=== PATIENT | female | born 1950 | race American Indian/Alaskan Native ===

== ENCOUNTER 2018-03-20 10:39 | Outpatient (CLI) | payer OTHER | END 2018-03-20 10:49 | disposition home or self-care (01) | LOC: NUCLEAR 10:39 | DX: M46.28 Osteomyelitis of vertebra, sacral and sacrococcygeal region (principal); L89.159 Pressure ulcer of sacral region, unspecified stage | CPT/HCPCS: 78315; 78320; A9503 ==

== ENCOUNTER 2018-07-09 10:44 | Outpatient (CLI) | payer OTHER | END 2018-07-09 11:47 | disposition home or self-care (01) | LOC: RAD 501 10:44 | DX: M86.462 Chronic osteomyelitis with draining sinus, left tibia and fibula (principal); M86.461 Chronic osteomyelitis with draining sinus, right tibia and fibula; M25.561 Pain in right knee; M25.562 Pain in left knee ==

== ENCOUNTER 2020-06-19 11:29 | Outpatient (CLI) | payer OTHER | END 2020-06-19 15:00 | disposition home or self-care (01) | LOC: TOM 11:29 | DX: K59.09 Other constipation (principal); R10.31 Right lower quadrant pain; R10.32 Left lower quadrant pain; Q61.02 Congenital multiple renal cysts | CPT/HCPCS: 74177; Q9965 ==

== ENCOUNTER 2021-05-04 13:33 | Outpatient (CLI) | payer OTHER | END 2021-05-04 14:08 | disposition home or self-care (01) | LOC: MRI 13:33 | PROVIDERS: ATTEND Psychiatry & Neurology Neurology | DX: G93.89 Other specified disorders of brain (principal); G30.8 Other Alzheimer's disease | CPT/HCPCS: 70551 ==

== ENCOUNTER 2021-10-19 12:21 | Emergency (ER) | payer OTHER ==
[~2021-10-19] VITALS: Ht 160 cm; Wt 54.4 kg
[2021-10-19] MEDS ORDERED: GRALISE600 MG (13:02)
[2021-10-19] MEDS ORDERED: DITROPAN XL5 MG (13:02)
[2021-10-19] MEDS ORDERED: BACLOFEN20 MG PO (13:03)
[2021-10-19] MEDS ORDERED: ROSUVASTATIN CA20 MG PO (13:03)
[2021-10-19] MEDS ORDERED: ULTRAM50 MG PO (16:38)
== END 2021-10-19 16:44 | disposition home or self-care (01) ==
LOC: ER 12:21
DX: R51.9 Headache, unspecified (principal); Z88.2 Allergy status to sulfonamides

== ENCOUNTER 2023-04-27 23:12 | Inpatient (IN) | payer OTHER ==
[~2023-04-27] VITALS: Ht 160 cm; Wt 54.4 kg
[~2023-04-27 23:12] MED LIST: BACLOFEN20 MG PO; DITROPAN XL5 MG; GRALISE600 MG; ROSUVASTATIN CA20 MG PO; ULTRAM50 MG PO
[2023-04-28 01:34] LABS: HEMATOCRIT 44.1 % (36.0-45.00); HEMOGLOBIN 14.9 g/dL (12.0-15.00); MEAN CELL VOLUME 83.9 fL (80.00-100.00); MEAN CORPUSCULAR HEMOGLOBIN 28.3 pg (27.00-32.0); MEAN CORPUSCULAR HGB CONC 33.8 g/dl (32.0-36.0); PLATELET COUNT 201 K/uL (150-450); RED BLOOD COUNT 5.26 M/uL (4.00-6.00); RED CELL DISTRIBUTION WIDTH 15.3 % (11.5-14.5)
[2023-04-28 01:51] LABS: INR 1.02; PARTIAL THROMBOPLASTIN TIME 33.5 SECONDS (22.0-34.0); PROTHROMBIN TIME 10.7 SECONDS (9.0-11.5)
[2023-04-28 02:01] LABS: ALBUMIN 3.3 gm/dL (3.4-5.0); BILIRUBIN TOTAL 0.43 mg/dL (0.3-1.2); CALCIUM 8.9 mg/dL (8.5-10.1); CREATININE SERUM 0.46 mg/dL (0.55-1.02); GFR 134.29; POTASSIUM 3.6 mEq/L (3.5-5.1); TOTAL PROTEIN 7.3 gm/dL (6.4-8.2)
[2023-04-28 02:34] LABS: PH,URINE 5.5 (5.0-8.0); URINE APPEARANCE Clear; URINE BILIRRUBIN Negative (NEGATIVE); URINE BLOOD Small; URINE COLOR Yellow; URINE GLUCOSE Negative (NEGATIVE); URINE LEUKOCYTE Negative; URINE NITRATE Positive; URINE PROTEIN Trace (NEGATIVE); URINE UROBILINOGEN 0.2 E.U./dl
[2023-04-28 02:38] LABS: URINE EPITHELIAL CELLS 7.1 uL (0.0-38.8); URINE RBC 2.8 uL (0.0-20.8); URINE WBC 17.6 uL (0.0-23.2)
[2023-04-28 03:16] LABS: URINE BACTERIA > 9821.5 uL (0.0-1933); URINE CRYSTALS NEGATIVE /HPF; URINE YEAST NEGATIVE /hpf
[2023-04-28 20:24] LABS: CKMB 1.2 NG/ML (0.5-3.6)
[2023-04-30 21:52] LABS: HEMATOCRIT 41.8 % (36.0-45.00); HEMOGLOBIN 14.4 g/dL (12.0-15.00); MEAN CELL VOLUME 82.3 fL (80.00-100.00); MEAN CORPUSCULAR HEMOGLOBIN 28.3 pg (27.00-32.0); MEAN CORPUSCULAR HGB CONC 34.4 g/dl (32.0-36.0); PLATELET COUNT 167 K/uL (150-450); RED BLOOD COUNT 5.08 M/uL (4.00-6.00); RED CELL DISTRIBUTION WIDTH 15.5 % (11.5-14.5)
[2023-04-30 21:55] LABS: ERYTHROCYTE SEDIMENTATION RATE 18 mm/hr
[2023-04-30 22:16] LABS: INR 0.94; PARTIAL THROMBOPLASTIN TIME 35.8 SECONDS (22.0-34.0); PROTHROMBIN TIME 9.9 SECONDS (9.0-11.5)
[2023-04-30 22:21] LABS: CKMB 1.7 NG/ML (0.5-3.6)
[2023-04-30 22:29] LABS: ALBUMIN 2.8 gm/dL (3.4-5.0); ALKALINE PHOSPHATASE 90 U/L (50-136); ALT/SGPT 26 U/L (12-78); ANION GAP 11 (10.0-20.0); AST/SGOT 41 U/L (15-37); BILIRUBIN,CONJUGATED < 0.10 mg/dL (0.0-0.2); BLOOD UREA NITROGEN 16 mg/dL (7-18); BUN CREA RATIO 46 (7.0-25.0); CALCIUM 8.7 mg/dL (8.5-10.1); CARBON DIOXIDE 24 mEq/L (21-32); CHLORIDE 108 mmol/L (98-107); CHOL HDL RATIO 5.2 (0-5.0); CHOLESTEROL 234 mg/dL (0-200); CREATININE SERUM 0.35 mg/dL (0.55-1.02); GFR 184.09; GLOBULINA 3.3 G/DL (2.4-3.5); GLUCOSE FASTING 94 mg/dL (65-100); HDL 45 mg/dl (40-60); LDL 160 mg/dl (0-130); OSMOLALITY SERUM 278 MOSM/KG (275-295); SODIUM 139 mmol/L (136-145); TOTAL PROTEIN 6.1 gm/dL (6.4-8.2); TRIGLYCERIDES 143 mg/dL (0-150); VLDL 28 (0-39)
[2023-04-30 22:37] LABS: C-REACTIVE PROTEIN 1.78 MG/DL (0.00-0.29)
[2023-04-30 22:38] LABS: POTASSIUM 3.64 mEq/L (3.5-5.1)
[2023-05-01 02:43] LABS: URINE APPEARANCE Cloudy; URINE BILIRRUBIN Negative (NEGATIVE); URINE BLOOD Negative; URINE COLOR Yellow; URINE GLUCOSE Negative (NEGATIVE); URINE LEUKOCYTE Small; URINE NITRATE Negative; URINE PROTEIN 30 (NEGATIVE)
[2023-05-01 02:46] LABS: URINE BACTERIA 148.6 uL (0.0-1933); URINE EPITHELIAL CELLS 50.4 uL (0.0-38.8); URINE RBC 155.9 uL (0.0-20.8); URINE WBC 160.9 uL (0.0-23.2)
[2023-05-01 03:25] LABS: URINE CRYSTALS FEW /HPF; URINE EPITHELIAL CELLS 0-4 /HPF
[2023-05-03 14:47] LABS: HEMATOCRIT 40.9 % (36.0-45.00); HEMOGLOBIN 13.9 g/dL (12.0-15.00); MEAN CELL VOLUME 83.5 fL (80.00-100.00); MEAN CORPUSCULAR HEMOGLOBIN 28.4 pg (27.00-32.0); PLATELET COUNT 144 K/uL (150-450); RED BLOOD COUNT 4.89 M/uL (4.00-6.00); RED CELL DISTRIBUTION WIDTH 15.2 % (11.5-14.5)
[2023-05-03 15:26] LABS: ALBUMIN 2.4 gm/dL (3.4-5.0); BILIRUBIN TOTAL 0.42 mg/dL (0.3-1.2); CALCIUM 8.8 mg/dL (8.5-10.1); CREATININE SERUM 0.38 mg/dL (0.55-1.02); GFR 167.42; GLOBULINA 3.1 G/DL (2.4-3.5); POTASSIUM 3.18 mEq/L (3.5-5.1); TOTAL PROTEIN 5.5 gm/dL (6.4-8.2)
== END 2023-05-05 17:17 | disposition home or self-care (01) | DRG 689 ==
LOC: ER 23:12 → MEDI 04-28 19:19
PROVIDERS: General Practice; Internal Medicine; ADMIT Internal Medicine; ATTEND Internal Medicine
PROC: 4A12X4Z Monitoring of Cardiac Electrical Activity, External Approach (ICD-10-PCS; principal; 2023-04-28)
PROC: BW28ZZZ Computerized Tomography (CT Scan) of Head (ICD-10-PCS; 2023-04-28)
PROC: BW21ZZZ Computerized Tomography (CT Scan) of Abdomen and Pelvis (ICD-10-PCS; 2023-04-28)
PROC: B345ZZZ Ultrasonography of Bilateral Common Carotid Arteries (ICD-10-PCS; 2023-04-28)
PROC: 4A12X4Z Monitoring of Cardiac Electrical Activity, External Approach (ICD-10-PCS; 2023-04-28)
DX: N39.0 Urinary tract infection, site not specified (principal); G93.41 Metabolic encephalopathy; G82.20 Paraplegia, unspecified; R41.82 Altered mental status, unspecified; E78.5 Hyperlipidemia, unspecified; Z20.822 Contact with and (suspected) exposure to COVID-19; F10.20 Alcohol dependence, uncomplicated
CPT/HCPCS: 70544

== ENCOUNTER 2024-03-25 08:32 | Inpatient (IN) | payer OTHER ==
[~2024-03-25] VITALS: Ht 157.5 cm; Wt 54.4 kg
[2024-03-25] MEDS ORDERED: PREGABALIN75 MG PO (09:13)
[2024-03-25] MEDS ORDERED: 0.9 % SODIUM CHLORIDE 1,000 ML IV SCH ×2 (09:45→18:45)
[2024-03-25] MEDS ORDERED: PIPERACILLIN/TAZOBACTAM SODIUM 3.375 GM VIAL IV ONE (09:45)
[2024-03-25 11:06] LABS: CALCIUM 9.2 mg/dL (8.5-10.1); CREATININE SERUM 0.57 mg/dL (0.55-1.02); GFR 104.56; POTASSIUM 4.36 mEq/L (3.5-5.1)
[2024-03-25 11:16] LABS: HEMATOCRIT 36.4 % (36.0-45.00); MEAN CELL VOLUME 79.9 fL (80.00-100.00); MEAN CORPUSCULAR HEMOGLOBIN 26.4 pg (27.00-32.0); PLATELET COUNT 401 K/uL (150-450); RED BLOOD COUNT 4.55 M/uL (4.00-6.00); RED CELL DISTRIBUTION WIDTH 15.6 % (11.5-14.5)
[2024-03-25 13:26] LABS: PH,URINE 5.5 (5.0-8.0); URINE APPEARANCE Cloudy; URINE BILIRRUBIN Negative (NEGATIVE); URINE BLOOD Small; URINE COLOR Yellow; URINE GLUCOSE Negative (NEGATIVE); URINE KETONE Negative (NEGATIVE); URINE LEUKOCYTE Large; URINE NITRATE Positive; URINE PROTEIN Trace (NEGATIVE); URINE UROBILINOGEN 0.2 E.U./dl
[2024-03-25 13:27] LABS: URINE EPITHELIAL CELLS 14.3 uL (0.0-38.8); URINE RBC 12.6 uL (0.0-20.8); URINE WBC 1037.4 uL (0.0-23.2)
[2024-03-25 13:58] LABS: URINE BACTERIA > 9821.5 uL (0.0-1933)
[2024-03-25] MEDS ORDERED: VANCOMYCIN HCL 1,000 MG VIAL IV SCH (18:46)
[2024-03-25] MEDS ORDERED: CEFEPIME HCL 2,000 MG in 0.9 % SODIUM CHLORIDE 100 ML IV SCH (18:46)
[2024-03-25] MEDS ORDERED: ONDANSETRON HCL 4 MG in 0.9 % SODIUM CHLORIDE 50 ML IV PRN (19:00)
[2024-03-25] MEDS ORDERED: ACETAMINOPHEN 500 MG GEL..CAP PO PRN (19:00)
[2024-03-25 20:18] LABS: INR 1.09; PARTIAL THROMBOPLASTIN TIME 29.5 SECONDS (22.0-34.0); PROTHROMBIN TIME 11.8 SECONDS (9.0-11.5)
[2024-03-25 21:30] VITALS: BP 94/57; O2SAT 94
[2024-03-26 00:11] VITALS: BP 124/60; O2SAT 99
[2024-03-26 08:48] VITALS: BP 113/62; O2SAT 97
[2024-03-26] MEDS ORDERED: ENOXAPARIN SODIUM 40 MG/0.4 ML SYRINGE SUBCUTANEO SCH (09:00)
[2024-03-26] MEDS ORDERED: Pregabalin 50 MG CAPSULE PO SCH (09:00)
[2024-03-26] MEDS ORDERED: FAMOTIDINE/PF 20 MG in 0.9 % SODIUM CHLORIDE 8 ML IV PUSH SCH (09:00)
[2024-03-26] MEDS ORDERED: MUPIROCIN 22 GM OINT..GM TUBE NASAL SCH (17:00)
[2024-03-26] MEDS ORDERED: MUPIROCIN 15 GM OINT..GM TUBE NASAL SCH (17:00)
[2024-03-26 18:18] VITALS: BP 112/61; O2SAT 96
[2024-03-26] MEDS ORDERED: CEFEPIME HCL 2,000 MG in 0.9 % SODIUM CHLORIDE 100 ML IV SCH (21:00)
[2024-03-27 01:09] VITALS: BP 100/50; O2SAT 99
[2024-03-27 08:42] LABS: HEMATOCRIT 31.8 % (36.0-45.00); HEMOGLOBIN 10.5 g/dL (12.0-15.00); MEAN CELL VOLUME 79.2 fL (80.00-100.00); MEAN CORPUSCULAR HEMOGLOBIN 26.1 pg (27.00-32.0); MEAN CORPUSCULAR HGB CONC 32.9 g/dl (32.0-36.0); PLATELET COUNT 351 K/uL (150-450); RED BLOOD COUNT 4.01 M/uL (4.00-6.00); RED CELL DISTRIBUTION WIDTH 15.2 % (11.5-14.5)
[2024-03-27] MEDS ORDERED: CHLORHEXIDINE GLUCONATE 120 ML BOTTLE TOP SCH (09:00)
[2024-03-27 09:04] VITALS: BP 114/55; O2SAT 98
[2024-03-27 09:55] LABS: ALBUMIN 2.1 gm/dL (3.4-5.0); BILIRUBIN TOTAL 0.2 mg/dL (0.3-1.2); CALCIUM 8.6 mg/dL (8.5-10.1); GFR 258.67; GLOBULINA 3.6 G/DL (2.4-3.5); POTASSIUM 4.56 mEq/L (3.5-5.1); TOTAL PROTEIN 5.7 gm/dL (6.4-8.2)
[2024-03-27 10:02] LABS: CREATININE SERUM 0.26 mg/dL (0.55-1.02)
[2024-03-27] MEDS ORDERED: MEROPENEM 500 MG/VIAL VIAL IV SCH (14:00)
[2024-03-27 18:44] VITALS: BP 97/51
[2024-03-28 01:01] VITALS: BP 135/80
[2024-03-28 09:11] VITALS: BP 110/63; O2SAT 98
[2024-03-28 18:01] VITALS: BP 120/61; O2SAT 97
[2024-03-29 06:18] LABS: HEMATOCRIT 30.4 % (36.0-45.00); HEMOGLOBIN 10.3 g/dL (12.0-15.00); MEAN CELL VOLUME 78.9 fL (80.00-100.00); MEAN CORPUSCULAR HEMOGLOBIN 26.7 pg (27.00-32.0); MEAN CORPUSCULAR HGB CONC 33.8 g/dl (32.0-36.0); PLATELET COUNT 390 K/uL (150-450); RED BLOOD COUNT 3.86 M/uL (4.00-6.00); RED CELL DISTRIBUTION WIDTH 15.7 % (11.5-14.5)
[2024-03-29 06:59] LABS: ALBUMIN 1.9 gm/dL (3.4-5.0); BILIRUBIN TOTAL 0.21 mg/dL (0.3-1.2); CALCIUM 8.8 mg/dL (8.5-10.1); GFR 237.48; GLOBULINA 3.5 G/DL (2.4-3.5); POTASSIUM 5.56 mEq/L (3.5-5.1); TOTAL PROTEIN 5.4 gm/dL (6.4-8.2)
[2024-03-29 07:08] LABS: CREATININE SERUM 0.28 mg/dL (0.55-1.02)
[2024-03-29] MEDS ORDERED: SODIUM POLYSTYRENE SULFONATE 30G/8 TSP PO NR (08:45)
[2024-03-29 09:17] VITALS: BP 134/57; O2SAT 96
[2024-03-29 18:09] VITALS: BP 128/68; O2SAT 98
[2024-03-30 01:45] VITALS: BP 129/71; O2SAT 99
[2024-03-30 08:20] LABS: CALCIUM 8.9 mg/dL (8.5-10.1); CREATININE SERUM 0.34 mg/dL (0.55-1.02); GFR 189.8; POTASSIUM 5.22 mEq/L (3.5-5.1)
[2024-03-30 10:16] VITALS: BP 121/72; O2SAT 98
[2024-03-30 18:21] VITALS: BP 124/60
[2024-03-31 02:24] VITALS: BP 126/72
[2024-03-31 09:54] VITALS: BP 129/69; O2SAT 99
[2024-03-31 20:18] VITALS: BP 112/53
[2024-04-01 01:47] VITALS: BP 122/68
[2024-04-01 08:46] VITALS: BP 143/64; O2SAT 99
[2024-04-01 15:10] LABS: HEMATOCRIT 32.6 % (36.0-45.00); HEMOGLOBIN 10.8 g/dL (12.0-15.00); MEAN CELL VOLUME 77.9 fL (80.00-100.00); MEAN CORPUSCULAR HEMOGLOBIN 25.7 pg (27.00-32.0); PLATELET COUNT 499 K/uL (150-450); RED BLOOD COUNT 4.19 M/uL (4.00-6.00); RED CELL DISTRIBUTION WIDTH 15.8 % (11.5-14.5)
[2024-04-01 15:35] LABS: ALBUMIN 1.9 gm/dL (3.4-5.0); BILIRUBIN TOTAL 0.14 mg/dL (0.3-1.2); CALCIUM 8.3 mg/dL (8.5-10.1); CREATININE SERUM 0.34 mg/dL (0.55-1.02); GFR 189.8; GLOBULINA 3.6 G/DL (2.4-3.5); POTASSIUM 4.41 mEq/L (3.5-5.1); TOTAL PROTEIN 5.5 gm/dL (6.4-8.2)
[2024-04-01 19:25] VITALS: BP 130/70; O2SAT 97
[2024-04-02 01:03] VITALS: BP 117/55
[2024-04-02 10:01] VITALS: BP 127/74; O2SAT 96
[2024-04-02 18:54] VITALS: BP 120/70; O2SAT 97
[2024-04-03 02:12] VITALS: BP 122/71
[2024-04-03 06:08] LABS: HEMATOCRIT 33.4 % (36.0-45.00); HEMOGLOBIN 11.2 g/dL (12.0-15.00); MEAN CELL VOLUME 78.3 fL (80.00-100.00); MEAN CORPUSCULAR HEMOGLOBIN 26.3 pg (27.00-32.0); MEAN CORPUSCULAR HGB CONC 33.6 g/dl (32.0-36.0); PLATELET COUNT 493 K/uL (150-450); RED BLOOD COUNT 4.26 M/uL (4.00-6.00); RED CELL DISTRIBUTION WIDTH 15.4 % (11.5-14.5)
[2024-04-03 06:35] LABS: ERYTHROCYTE SEDIMENTATION RATE 68 mm/hr
[2024-04-03 06:40] LABS: CALCIUM 9.2 mg/dL (8.5-10.1); PHOSPHOROUS 3.2 mg/dL (2.5-4.9); POTASSIUM 5.3 mEq/L (3.5-5.1)
[2024-04-03 06:50] LABS: C-REACTIVE PROTEIN 4.34 MG/DL (0.00-0.29); CREATININE SERUM 0.26 mg/dL (0.55-1.02); GFR 258.67
[2024-04-03 08:55] VITALS: BP 123/60; O2SAT 98
== END 2024-04-03 21:56 | disposition home or self-care (01) | DRG 853 ==
LOC: ER 08:32 → MEDI 19:19 → MEDJ 19:19
PROVIDERS: Emergency Medicine; General Practice; Internal Medicine Infectious Disease; ADMIT Internal Medicine; ATTEND Internal Medicine
PROC: BW3GZZZ Magnetic Resonance Imaging (MRI) of Pelvic Region (ICD-10-PCS; 2024-03-26)
PROC: CP161ZZ Planar Nuclear Medicine Imaging of Pelvis using Technetium 99m (Tc-99m) (ICD-10-PCS; 2024-03-26)
PROC: 0JBN0ZZ Excision of Right Lower Leg Subcutaneous Tissue and Fascia, Open Approach (ICD-10-PCS; principal; 2024-03-27)
PROC: 0JBP0ZZ Excision of Left Lower Leg Subcutaneous Tissue and Fascia, Open Approach (ICD-10-PCS; 2024-03-27)
PROC: 0QB10ZX Excision of Sacrum, Open Approach, Diagnostic (ICD-10-PCS; 2024-03-27)
PROC: 02HV33Z Insertion of Infusion Device into Superior Vena Cava, Percutaneous Approach (ICD-10-PCS; 2024-03-27)
PROC: 3E04329 Introduction of Other Anti-infective into Central Vein, Percutaneous Approach (ICD-10-PCS; 2024-03-27)
DX: A41.9 Sepsis, unspecified organism (principal); L89.154 Pressure ulcer of sacral region, stage 4; M86.68 Other chronic osteomyelitis, other site; N39.0 Urinary tract infection, site not specified; G82.20 Paraplegia, unspecified; L89.512 Pressure ulcer of right ankle, stage 2; L89.529 Pressure ulcer of left ankle, unspecified stage; I10 Essential (primary) hypertension; E78.5 Hyperlipidemia, unspecified; E87.5 Hyperkalemia; B95.62 Methicillin resistant Staphylococcus aureus infection as the cause of diseases classified elsewhere; B96.20 Unspecified Escherichia coli [E. coli] as the cause of diseases classified elsewhere; B96.89 Other specified bacterial agents as the cause of diseases classified elsewhere; Z74.01 Bed confinement status
CPT/HCPCS: 72195